=== PATIENT | male | born 1940 | race Caucasian/White ===

== ENCOUNTER 2018-02-01 14:26 | Emergency (ER) | payer OTHER ==
[~2018-02-01] VITALS: Ht 180.3 cm; Wt 77.1 kg
[~2018-02-01 14:26] MED LIST: ASPI81TA27 PO; CALC500T87 PO; CARV25TA55 PO; COURX10 PO; FURO40TA PO; LOSA25TA9 PO; MAGN30TA4 PO; MEX150C PO; POTA1TAB4 PO; SOTA120T25 PO; TAM04C PO
[2018-02-01] MEDS ORDERED: EPINEPHrine HCL 1 MG/10 ML SYRG IV ONE (14:27)
[2018-02-01] MEDS ORDERED: CALCIUM CHLOR(10%) 100MG/ML 10ML SYRINGE IV ONE (14:27)
[2018-02-01] MEDS ORDERED: SODIUM BICARBONATE 8.4% INJ 50ML SYRINGE IV ONE (14:27)
[2018-02-01] MEDS ORDERED: SODIUM BICARBONATE 8.4 % INJ 50ML VIAL IV ONE ×3 (14:48→15:42)
[2018-02-01] MEDS ORDERED: SODIUM CHLORIDE 0.9% 1,000 ML IV ONE (15:10)
[2018-02-01] MEDS ORDERED: NOREPINEPHRINE 16 MG/500ML KIT 500 ML IV ONE ×2 (15:42→15:46)
[2018-02-01] MEDS ORDERED: EPINEPHrine HCL 1 MG/10 ML SYRG ONE (15:42)
[2018-02-01 15:58] LABS: Hematocrit 46.4 % (41.0-53.0); Hemoglobin 14.7 g/dL (13.5-17.5); Mean Corpuscular Hemoglobin 30.5 pg (28.0-32.0); Mean Corpuscular Hgb Conc. 31.8 g/dL (32.0-36.0); Mean Corpuscular Volume 96.1 fL (80.0-100.0); Platelet Count (auto) 148 10^3/uL (140-450); Red Blood Cells 4.82 10^6/uL (4.5-5.90); Red Cell Distribution Width 17.2 % (11.8-14.3); White Blood Cell 11.2 10^3/uL (4.4-10.8)
[2018-02-01 16:09] LABS: Band Neutrophils % (manual) 0; Basophils % (manual) 0 (0.0-2.0); Blast Cells 0; Eosinophils % (manual) 0 (0-7); Promyelocytes % 0; Reactive Lymphocytes 0
[2018-02-01 16:12] LABS: Lymphocytes % (manual) 15 (10.0-50.0); Metamyelocytes % 1; Monocytes % (manual) 8 (0-12); Myelocytes % 1
[2018-02-01 17:30] VITALS: BP 131/30
== END 2018-02-01 21:07 | disposition expired ==
LOC: ER 14:26 → EDBD 14:26 → ER 21:07
DX: I46.9 Cardiac arrest, cause unspecified (principal); I11.0 Hypertensive heart disease with heart failure; I50.9 Heart failure, unspecified; I25.2 Old myocardial infarction; E78.5 Hyperlipidemia, unspecified; Z79.899 Other long term (current) drug therapy; Z88.0 Allergy status to penicillin; Z95.0 Presence of cardiac pacemaker; Z79.82 Long term (current) use of aspirin; Z79.01 Long term (current) use of anticoagulants
CPT/HCPCS: 36415; 36600; 71045; 82805; 85007; 85027; 87070; 87205; 92950; 93005; 99285; J0171; 94002; 94761